=== PATIENT | male | born 1945 | race Caucasian/White ===

== ENCOUNTER 2017-10-23 17:44 | Inpatient (IN) | payer MEDICARE ==
[~2017-10-23] VITALS: Ht 188 cm; Wt 90.0 kg
[~2017-10-23 17:44] MED LIST: ACET-2119 PO; AMLO5TAB16 PO; FINA5TAB11 PO; GLIM2TAB2 PO; INSU100V9 SQ; LACT10SO32 PO; OMEP-84 PO; POTA10TA10 PO; RIFA550T PO; SAXA5TAB PO
[2017-10-23 18:26] LABS: BASOPHILS % (AUTO) 0 % (0-1); EOSINOPHILS # (AUTO) 0.1 X10'3 (0-0.9); HEMATOCRIT 34.7 % (42.0-52.0); HEMOGLOBIN 11.9 g/dl (14.0-17.9); LYMPHOCYTES # (AUTO) 0.5 X10'3 (1.1-4.8); LYMPHOCYTES % (AUTO) 5.1 % (21-51); MEAN CORPUSCULAR HEMOGLOBIN 32.2 PG (27.0-31.0); MEAN CORPUSCULAR HGB CONC 34.2 % (33.0-36.5); MEAN CORPUSCULAR VOLUME 94.2 FL (78-98); MEAN PLATELET VOLUME 7.3 FL (7.4-10.4); MONOCYTES # (AUTO) 0.7 X10'3 (0-0.9); MONOCYTES % (AUTO) 7.2 % (2-12); NEUTROPHILS # (AUTO) 8.6 X10'3 (1.8-7.7); NEUTROPHILS % (AUTO) 86.7 % (42-75); PLATELET COUNT 119 X10'3 (140-440); RED BLOOD COUNT 3.69 X10'6 (4.70-6.10); RED CELL DISTRIBUTION WIDTH 18.6 % (11.5-14.5); WHITE BLOOD COUNT 9.9 X10'3 (4.5-11.0)
[2017-10-23 18:27] LABS: CLARITY,URINE CLEAR (Clear); COLOR,URINE YELLOW (Yellow); GLUCOSE, URINE >=1000 mg/dl (Neg); KETONES,URINE TRACE mg/dl (Neg); LEUKOCYTE ESTERASE ,URINE NEGATIVE (Neg); NITRITES, URINE NEGATIVE (Neg); OCCULT BLOOD,URINE LARGE (Neg); PROTEIN,URINE NEGATIVE (Neg); UROBILINOGEN,URINE 0.2 E.U/dL (0.2-1.0)
[2017-10-23 18:38] LABS: UA COLLECTION TYPE FOLEY CATH
[2017-10-23 18:39] LABS: BACTERIA,URINE FEW /HPF (Neg); RBC,URINE 0-2 /HPF (0-2); SQUAMOUS EPITHELIAL CELL,UR FEW /LPF (FEW); WBC,URINE NONE SEEN /HPF (0-4)
[2017-10-23 18:41] LABS: INR 1.2 INR; PARTIAL THROMBOPLASTIN TIME 29 SECONDS (22-32); PROTHROMBIN TIME 12.2 SECONDS (9.0-12.0)
[2017-10-23 19:10] LABS: ALANINE AMINOTRANSFERASE 47 U/L (12-78); ALBUMIN/GLOBULIN RATIO 0.4 (1.1-1.5); ANION GAP 19 (8-16); ASPARTATE AMINO TRANSFERASE 209 U/L (10-37); BILIRUBIN,TOTAL 2.9 MG/DL (0.1-1.0); BLOOD UREA NITROGEN 29 MG/DL (7-18); BUN/CREATININE RATIO 15.3 (5.4-32.0); CALCIUM 8.6 MG/DL (8.5-10.1); CHLORIDE 106 MMOL/L (99-107); GLUCOSE 379 MG/DL (70-104); MAGNESIUM 2.1 MG/DL (1.5-2.4); POTASSIUM 5.4 MMOL/L (3.5-5.1); SODIUM 140 MMOL/L (135-145); TOTAL CARBON DIOXIDE 15.4 MMOL/L (24-32); TROPONIN I 0.13 NG/ML (0.0-0.05); eGFR 35 ML/MIN
[2017-10-23 19:11] LABS: LACTIC SEPSIS 11.8 MMOL/L (0.4-2.0)
[2017-10-23] MEDS ORDERED: normal saline 1000ml 1,000 ML IVB ONE (19:23)
[2017-10-23] MEDS ORDERED: vancomycin/NS 1 GM ADD-VANTAGE 250 ML IV STA (19:24)
[2017-10-23] MEDS ORDERED: piperacillin-tazo 2.25gm/50ml 50 ML IV STA (19:24)
[2017-10-23 19:30] LABS: ALKALINE PHOSPHATASE 155 IU/L (46-116)
[2017-10-23 19:44] LABS: CREATINE KINASE 11669 U/L (39-308)
[2017-10-23 19:51] LABS: ABG BASE EXCESS -10.9 mmol/L (-2.0-3.0); ABG HCO3 12.7 mmol/L (22.0-26.0); ABG OXYGEN SATURATION 96.8 % (95-98); ABG PCO2 (T) 22.2 mmHg (35.0-48.0); ABG PH (T) 7.373 (7.350-7.450); ABG PO2 (T) 98.2 mmHg (83-108); ALLEN'S TEST Positive; FCOHb 0.5 % (0.5-1.5); FMetHb 0.2 % (0.3-1.12); FO2Hb 96.1 % (94-100); PATIENT TEMPERATURE 36.2; TOTAL HEMOGLOBIN 11.5 G/dl (14.0-18.0)
[2017-10-23] MEDS ORDERED: vancomycin/NS 1 GM ADD-VANTAGE 250 ML IV ONE ×2 (20:10→20:15)
[2017-10-23] MEDS ORDERED: lactulose 20gm/30ml cup PO ONE (21:10)
[2017-10-23] MEDS ORDERED: diltiazem 5mg/ml 5ml inj. IV ONE (21:30)
[2017-10-23] MEDS ORDERED: SODIUM BICARBONATE IV SCH (23:10)
[2017-10-23] MEDS ORDERED: DEXTROSE 5% IV SCH (23:10)
[2017-10-23] MEDS ORDERED: WATER IV SCH (23:10)
[2017-10-23] MEDS ORDERED: sodium bicarbonate (8.4%) inj. 50 MEQ in dextrose 5%-water 1,000 ML IV SCH (23:10)
[2017-10-23] MEDS ORDERED: normal saline 1000ml 1,000 ML IV SCH (23:51)
[2017-10-23] MEDS ORDERED: mag hydrox/Alum hydrox/simeth 30ml oral suspension PO PRN (23:55)
[2017-10-23] MEDS ORDERED: acetaminophen 325mg tablet PO PRN (23:55)
[2017-10-23] MEDS ORDERED: ondansetron/PF 4mg/2ml inj IV PRN (23:55)
[2017-10-23] MEDS ORDERED: potassium Cl 40MEQ/NS 500ml 500 ML IV PRN ×2 (23:55)
[2017-10-23] MEDS ORDERED: magnesium 4gm in 100ml NS 100 ML IV PRN (23:55)
[2017-10-23] MEDS ORDERED: magnesium 2GM in 50ml NS 50 ML IV PRN (23:55)
[2017-10-23] MEDS ORDERED: magnesium hydroxide 30ml (MOM) UD suspension PO PRN (23:55)
[2017-10-23] MEDS ORDERED: potassium Cl 20 mEq SR tablet PO PRN ×2 (23:55)
[2017-10-23] MEDS ORDERED: magnesium Cl slow-release 64mg tablet PO PRN (23:55)
[2017-10-24] MEDS ORDERED: sodium bicarbonate (8.4%) inj. 50 MEQ in normal saline 1000ml 1,000 ML IV SCH (00:20)
[2017-10-24] MEDS ORDERED: sodium bicarbonate (8.4%) 1 mEq/ml syringe ONE (00:27)
[2017-10-24 01:30] VITALS: BP 109/51
[2017-10-24 05:41] LABS: BASOPHILS % (AUTO) 0 % (0-1); EOSINOPHILS # (AUTO) 0.1 X10'3 (0-0.9); HEMATOCRIT 34.3 % (42.0-52.0); HEMOGLOBIN 11.8 g/dl (14.0-17.9); LYMPHOCYTES # (AUTO) 0.6 X10'3 (1.1-4.8); MEAN CORPUSCULAR HEMOGLOBIN 32.5 PG (27.0-31.0); MEAN CORPUSCULAR HGB CONC 34.5 % (33.0-36.5); MEAN CORPUSCULAR VOLUME 94.2 FL (78-98); MEAN PLATELET VOLUME 7.4 FL (7.4-10.4); MONOCYTES # (AUTO) 0.6 X10'3 (0-0.9); MONOCYTES % (AUTO) 6.1 % (2-12); NEUTROPHILS % (AUTO) 86.9 % (42-75); PLATELET COUNT 95 X10'3 (140-440); RED BLOOD COUNT 3.65 X10'6 (4.70-6.10); RED CELL DISTRIBUTION WIDTH 19.5 % (11.5-14.5); WHITE BLOOD COUNT 10.4 X10'3 (4.5-11.0)
[2017-10-24 06:00] LABS: LACTIC SEPSIS 2.5 MMOL/L (0.4-2.0)
[2017-10-24 06:05] LABS: ALANINE AMINOTRANSFERASE 136 U/L (12-78); ALBUMIN 1.6 G/DL (3.4-5.0); ALBUMIN/GLOBULIN RATIO 0.4 (1.1-1.5); ALKALINE PHOSPHATASE 131 IU/L (46-116); ANION GAP 10 (8-16); ASPARTATE AMINO TRANSFERASE 851 U/L (10-37); BILIRUBIN,TOTAL 2.7 MG/DL (0.1-1.0); BLOOD UREA NITROGEN 34 MG/DL (7-18); CALCIUM 7.6 MG/DL (8.5-10.1); CHLORIDE 111 MMOL/L (99-107); GLUCOSE 260 MG/DL (70-104); MAGNESIUM 1.9 MG/DL (1.5-2.4); POTASSIUM 4.9 MMOL/L (3.5-5.1); SODIUM 142 MMOL/L (135-145); TOTAL CARBON DIOXIDE 20.9 MMOL/L (24-32); eGFR 40 ML/MIN
[2017-10-24 06:09] LABS: HEMOGLOBIN A1C 6.9 % (4.5-6.2)
[2017-10-24 06:49] LABS: CREATINE KINASE 40292 U/L (39-308)
[2017-10-24 07:00] VITALS: BP 119/45
[2017-10-24] MEDS ORDERED: lactobacillus rhamnosus 10,000 MMU CELLS/CAPSULE PO SCH (07:30)
[2017-10-24] MEDS: pantoprazole 40mg Tablet.DR PO SCH ×2 (07:30→17:30)
[2017-10-24] MEDS: amLODIPine 5mg tablet PO SCH (08:00)
[2017-10-24] MEDS: heparin, porcine 5000 units/ml vial SQ SCH ×2 (08:00→20:00)
[2017-10-24] MEDS: K and/or MAG REPLACEMENT MC SCH (08:00)
[2017-10-24] MEDS: lactulose 20gm/30ml cup PO SCH ×7 (08:00→21:00)
[2017-10-24] MEDS ORDERED: vancomycin/NS 1 GM ADD-VANTAGE 250 ML IV SCH (08:00)
[2017-10-24] MEDS: finasteride 5mg tablet PO SCH (08:00)
[2017-10-24] MEDS ORDERED: lactulose 20gm/30ml cup PO SCH (08:00)
[2017-10-24] MEDS: rifaximin 550mg tablet PO SCH ×2 (08:00→20:00)
[2017-10-24 08:08] LABS: ACETAMINOPHEN < 2.0 UG/ML (10-30)
[2017-10-24] MEDS: piperacillin/tazo 4.5gm/100ml 100 ML IV SCH ×3 (09:06→19:28)
[2017-10-24] MEDS: sodium bicarbonate (8.4%) inj. 150 MEQ in dextrose 5%-water 1,000 ML IV SCH ×2 (09:07→18:35)
[2017-10-24 11:00] VITALS: BP 137/61
[2017-10-24 14:03] LABS: CREATINE KINASE 47538 U/L (39-308)
[2017-10-24] MEDS ORDERED: lactulose 20gm/30ml cup PO ONE (14:30)
[2017-10-24 15:00] VITALS: BP 107/53
[2017-10-24 16:28] LABS: CREATINE KINASE 38839 U/L (39-308)
[2017-10-24 18:00] VITALS: BP 123/67
[2017-10-24] MEDS ORDERED: dextrose 50%-water 50ml dispensing syringe IV PRN ×2 (18:55)
[2017-10-24] MEDS ORDERED: dextrose ORAL solution 15 GM/59 ML bottle PO PRN ×2 (18:55)
[2017-10-24] MEDS ORDERED: MESSAGE TO PHARMACY PO ONE (18:55)
[2017-10-24] MEDS ORDERED: glucagon, human recombinant 1mg kit SUBCUT PRN (18:55)
[2017-10-24] MEDS: insulin Lispro (HumaLOG) vial - multi-dose SQ SCH ×2 (19:47→23:07)
[2017-10-24] MEDS ORDERED: vancomycin inj 1,250 MG in normal saline 250ml IV soln 250 ML IV SCH (20:00)
[2017-10-24 22:00] VITALS: BP 135/57
[2017-10-24] MEDS: insulin glargine (Lantus) pen - multi-dose SQ SCH (22:46)
[2017-10-24] MEDS ORDERED: normal saline 1000ml 1,000 ML IV SCH (23:55)
[2017-10-25 02:00] VITALS: BP 104/43
[2017-10-25] MEDS: piperacillin/tazo 4.5gm/100ml 100 ML IV SCH (02:04)
[2017-10-25] MEDS: insulin Lispro (HumaLOG) vial - multi-dose SQ SCH ×2 (04:34→14:11)
[2017-10-25 05:55] LABS: BASOPHILS % (AUTO) 0 % (0-1); EOSINOPHILS # (AUTO) 0.1 X10'3 (0-0.9); HEMATOCRIT 32.5 % (42.0-52.0); HEMOGLOBIN 11.1 g/dl (14.0-17.9); LYMPHOCYTES # (AUTO) 0.6 X10'3 (1.1-4.8); LYMPHOCYTES % (AUTO) 4.9 % (21-51); MEAN CORPUSCULAR VOLUME 94.1 FL (78-98); MEAN PLATELET VOLUME 7.5 FL (7.4-10.4); MONOCYTES % (AUTO) 7.5 % (2-12); NEUTROPHILS # (AUTO) 11.3 X10'3 (1.8-7.7); NEUTROPHILS % (AUTO) 86.6 % (42-75); PLATELET COUNT 102 X10'3 (140-440); RED BLOOD COUNT 3.46 X10'6 (4.70-6.10); RED CELL DISTRIBUTION WIDTH 19.2 % (11.5-14.5)
[2017-10-25 06:37] LABS: ALANINE AMINOTRANSFERASE 166 U/L (12-78); ALBUMIN 1.4 G/DL (3.4-5.0); ALBUMIN/GLOBULIN RATIO 0.3 (1.1-1.5); ALKALINE PHOSPHATASE 118 IU/L (46-116); ANION GAP 8 (8-16); ASPARTATE AMINO TRANSFERASE 661 U/L (10-37); BILIRUBIN,TOTAL 3.3 MG/DL (0.1-1.0); BLOOD UREA NITROGEN 58 MG/DL (7-18); BUN/CREATININE RATIO 15.3 (5.4-32.0); CALCIUM 7.5 MG/DL (8.5-10.1); CHLORIDE 108 MMOL/L (99-107); GLUCOSE 369 MG/DL (70-104); MAGNESIUM 2.3 MG/DL (1.5-2.4); POTASSIUM 3.8 MMOL/L (3.5-5.1); SODIUM 140 MMOL/L (135-145); TOTAL CARBON DIOXIDE 23.8 MMOL/L (24-32); TOTAL PROTEIN 5.5 G/DL (6.4-8.2); eGFR 16 ML/MIN
[2017-10-25 07:00] VITALS: BP 112/76
[2017-10-25] MEDS: pantoprazole 40mg Tablet.DR PO SCH (07:30)
[2017-10-25] MEDS ORDERED: LACTOBACILLUS RHAMNOSUS GG 15 billion unit sprinkle caps PO SCH (07:30)
[2017-10-25 07:42] LABS: CREATINE KINASE 21080 U/L (39-308)
[2017-10-25] MEDS: amLODIPine 5mg tablet PO SCH (08:00)
[2017-10-25] MEDS: rifaximin 550mg tablet PO SCH ×2 (08:00→20:00)
[2017-10-25] MEDS: heparin, porcine 5000 units/ml vial SQ SCH (08:00)
[2017-10-25] MEDS: K and/or MAG REPLACEMENT MC SCH (08:00)
[2017-10-25] MEDS: finasteride 5mg tablet PO SCH (08:00)
[2017-10-25] MEDS ORDERED: furosemide 20 MG/2 ML vial IV SCH (08:40)
[2017-10-25] MEDS ORDERED: sodium bicarbonate inj. 44.6 MEQ, Potassium Cl inj 20 MEQ in sodium chloride 0.45% 990.... IV SCH (08:40)
[2017-10-25] MEDS: lactulose 20gm/30ml cup PO SCH ×4 (09:08→21:00)
[2017-10-25] MEDS ORDERED: potassium Cl oral solution 20 MEQ/15 ML PO PRN ×2 (10:57→10:58)
[2017-10-25 11:00] VITALS: BP 105/65
[2017-10-25] MEDS: sodium bicarbonate (8.4%) inj. 50 MEQ, Potassium Cl inj 20 MEQ in sodium chloride 0.45%... IV SCH ×2 (11:01→19:17)
[2017-10-25] MEDS ORDERED: pantoprazole 40MG/NS 100ML BAG 100 ML IV SCH (12:00)
[2017-10-25 12:45] LABS: CREATINE KINASE 13065 U/L (39-308)
[2017-10-25 14:38] LABS: BASOPHILS % (AUTO) 0.2 % (0-1); EOSINOPHILS # (AUTO) 0.2 X10'3 (0-0.9); EOSINOPHILS % (AUTO) 1.5 % (0-6); HEMATOCRIT 34.3 % (42.0-52.0); HEMOGLOBIN 11.7 g/dl (14.0-17.9); LYMPHOCYTES # (AUTO) 0.6 X10'3 (1.1-4.8); LYMPHOCYTES % (AUTO) 4.6 % (21-51); MEAN CORPUSCULAR HEMOGLOBIN 32.2 PG (27.0-31.0); MEAN CORPUSCULAR HGB CONC 34.2 % (33.0-36.5); MEAN CORPUSCULAR VOLUME 94.2 FL (78-98); MEAN PLATELET VOLUME 7.8 FL (7.4-10.4); MONOCYTES # (AUTO) 1.1 X10'3 (0-0.9); MONOCYTES % (AUTO) 7.9 % (2-12); NEUTROPHILS # (AUTO) 11.9 X10'3 (1.8-7.7); NEUTROPHILS % (AUTO) 85.8 % (42-75); PLATELET COUNT 105 X10'3 (140-440); RED BLOOD COUNT 3.63 X10'6 (4.70-6.10); RED CELL DISTRIBUTION WIDTH 19.8 % (11.5-14.5); WHITE BLOOD COUNT 13.9 X10'3 (4.5-11.0)
[2017-10-25 15:00] VITALS: BP 112/57
[2017-10-25 16:56] LABS: PLATELET ESTIMATE DECREASED
[2017-10-25 16:58] LABS: POLYCHROMASIA FEW
[2017-10-25 16:59] LABS: ANISOCYTOSIS 2+; MICROCYTOSIS 1+
[2017-10-25 17:00] LABS: SCHISTOCYTES FEW
[2017-10-25 19:00] VITALS: BP 131/49
[2017-10-25] MEDS ORDERED: LORazepam 2 mg/ml vial IV PRN (19:35)
[2017-10-25] MEDS ORDERED: morphine 10mg/ml inj. IV PRN (19:35)
[2017-10-25] MEDS: insulin glargine (Lantus) pen - multi-dose SQ SCH (21:00)
[2017-10-26 06:30] VITALS: BP 118/50
[2017-10-26] MEDS ORDERED: pantoprazole 40 MG vial IV SCH (08:00)
[2017-10-26] MEDS: morphine 10mg/0.5ml (conc. morphine) oral syringe PO PRN ×2 (10:40→12:42)
[2017-10-26 18:00] VITALS: BP 97/40
[2017-10-26] MEDS ORDERED: SODIUM BICARBONATE IV SCH (18:05)
[2017-10-26] MEDS ORDERED: potassium Cl 20 mEq SR tablet PO PRN ×2 (18:05)
[2017-10-26] MEDS ORDERED: magnesium Cl slow-release 64mg tablet PO PRN (18:05)
[2017-10-26] MEDS ORDERED: POTASSIUM CL IV SCH (18:05)
[2017-10-26] MEDS ORDERED: [UNRECOGNIZED DRUG - OTHER] IV SCH (18:05)
[2017-10-26] MEDS ORDERED: magnesium 4gm in 100ml NS 100 ML IV PRN (18:05)
[2017-10-26] MEDS ORDERED: potassium Cl 40MEQ/NS 500ml 500 ML IV PRN ×2 (18:05)
[2017-10-26] MEDS ORDERED: magnesium 2GM in 50ml NS 50 ML IV PRN (18:05)
[2017-10-26 18:43] LABS: BASOPHILS % (AUTO) 0.1 % (0-1); EOSINOPHILS # (AUTO) 0.2 X10'3 (0-0.9); EOSINOPHILS % (AUTO) 2.8 % (0-6); HEMATOCRIT 22.8 % (42.0-52.0); HEMOGLOBIN 7.9 g/dl (14.0-17.9); LYMPHOCYTES # (AUTO) 0.7 X10'3 (1.1-4.8); LYMPHOCYTES % (AUTO) 9.6 % (21-51); MEAN CORPUSCULAR HEMOGLOBIN 32.5 PG (27.0-31.0); MEAN CORPUSCULAR HGB CONC 34.7 % (33.0-36.5); MEAN CORPUSCULAR VOLUME 93.6 FL (78-98); MEAN PLATELET VOLUME 7.1 FL (7.4-10.4); MONOCYTES # (AUTO) 0.6 X10'3 (0-0.9); MONOCYTES % (AUTO) 8.5 % (2-12); NEUTROPHILS # (AUTO) 5.8 X10'3 (1.8-7.7); PLATELET COUNT 67 X10'3 (140-440); RED BLOOD COUNT 2.44 X10'6 (4.70-6.10); RED CELL DISTRIBUTION WIDTH 19.3 % (11.5-14.5); WHITE BLOOD COUNT 7.3 X10'3 (4.5-11.0)
[2017-10-26 19:06] LABS: ALANINE AMINOTRANSFERASE 166 U/L (12-78); ALBUMIN 1.2 G/DL (3.4-5.0); ALBUMIN/GLOBULIN RATIO 0.4 (1.1-1.5); ALKALINE PHOSPHATASE 95 IU/L (46-116); ANION GAP 10 (8-16); ASPARTATE AMINO TRANSFERASE 494 U/L (10-37); BILIRUBIN,TOTAL 2.8 MG/DL (0.1-1.0); BLOOD UREA NITROGEN 88 MG/DL (7-18); BUN/CREATININE RATIO 14.7 (5.4-32.0); CALCIUM 6.9 MG/DL (8.5-10.1); CHLORIDE 103 MMOL/L (99-107); GLUCOSE 349 MG/DL (70-104); POTASSIUM 3.9 MMOL/L (3.5-5.1); SODIUM 137 MMOL/L (135-145); TOTAL CARBON DIOXIDE 23.6 MMOL/L (24-32); TOTAL PROTEIN 4.6 G/DL (6.4-8.2); eGFR 9 ML/MIN
[2017-10-26 19:17] LABS: CREATINE KINASE 12325 U/L (39-308)
[2017-10-26] MEDS ORDERED: glucagon, human recombinant 1mg kit SUBCUT PRN (19:35)
[2017-10-26] MEDS ORDERED: dextrose 50%-water 50ml dispensing syringe IV PRN ×2 (19:35)
[2017-10-26] MEDS ORDERED: dextrose ORAL solution 15 GM/59 ML bottle PO PRN ×2 (19:35)
[2017-10-26] MEDS ORDERED: MESSAGE TO PHARMACY PO ONE (19:35)
[2017-10-26] MEDS: SODIUM BICARBONATE IV SCH (19:38)
[2017-10-26] MEDS: POTASSIUM CL IV SCH (19:38)
[2017-10-26] MEDS: [UNRECOGNIZED DRUG - OTHER] IV SCH (19:38)
[2017-10-26] MEDS: insulin glargine (Lantus) pen - multi-dose SQ SCH (21:00)
[2017-10-26] MEDS: pantoprazole 40MG/NS 100ML BAG 100 ML IV SCH (21:27)
[2017-10-26 22:00] VITALS: BP 103/37
[2017-10-27] VITALS (16 sets, daily range): BP systolic 95–110; BP diastolic 39–64
[2017-10-27] MEDS ORDERED: furosemide 20 MG/2 ML vial IV ONE (00:20)
[2017-10-27] MEDS: pantoprazole 40MG/NS 100ML BAG 100 ML IV SCH ×5 (02:19→21:00)
[2017-10-27] MEDS: [UNRECOGNIZED DRUG - OTHER] IV SCH ×2 (04:50→14:28)
[2017-10-27] MEDS: SODIUM BICARBONATE IV SCH ×2 (04:50→14:28)
[2017-10-27] MEDS: POTASSIUM CL IV SCH ×2 (04:50→14:28)
[2017-10-27] MEDS ORDERED: albumin (human) 25% 100ml IV 100 ML IV PRN (08:40)
[2017-10-27] MEDS ORDERED: epoetin 20,000 units/ml inj IV ONE (08:40)
[2017-10-27] MEDS ORDERED: heparin 1,000 units/ml 10ml inj HE ONE ×2 (08:45)
[2017-10-27] MEDS ORDERED: MANNITOL 20% IV ONE (09:10)
[2017-10-27 10:06] LABS: BASOPHILS % (AUTO) 0.2 % (0-1); EOSINOPHILS # (AUTO) 0.2 X10'3 (0-0.9); EOSINOPHILS % (AUTO) 1.9 % (0-6); HEMATOCRIT 28.5 % (42.0-52.0); HEMOGLOBIN 10.1 g/dl (14.0-17.9); LYMPHOCYTES # (AUTO) 0.6 X10'3 (1.1-4.8); LYMPHOCYTES % (AUTO) 5.4 % (21-51); MEAN CORPUSCULAR HEMOGLOBIN 33.2 PG (27.0-31.0); MEAN CORPUSCULAR HGB CONC 35.4 % (33.0-36.5); MEAN CORPUSCULAR VOLUME 93.6 FL (78-98); MEAN PLATELET VOLUME 7.5 FL (7.4-10.4); MONOCYTES % (AUTO) 8.7 % (2-12); NEUTROPHILS # (AUTO) 9.4 X10'3 (1.8-7.7); NEUTROPHILS % (AUTO) 83.8 % (42-75); PLATELET COUNT 90 X10'3 (140-440); RED BLOOD COUNT 3.05 X10'6 (4.70-6.10); RED CELL DISTRIBUTION WIDTH 18.1 % (11.5-14.5); WHITE BLOOD COUNT 11.2 X10'3 (4.5-11.0)
[2017-10-27 10:31] LABS: ALANINE AMINOTRANSFERASE 188 U/L (12-78); ALBUMIN 1.4 G/DL (3.4-5.0); ALKALINE PHOSPHATASE 113 IU/L (46-116); ANION GAP 14 (8-16); ASPARTATE AMINO TRANSFERASE 437 U/L (10-37); BILIRUBIN,TOTAL 4.4 MG/DL (0.1-1.0); BLOOD UREA NITROGEN 91 MG/DL (7-18); BUN/CREATININE RATIO 14.4 (5.4-32.0); CALCIUM 7.2 MG/DL (8.5-10.1); CHLORIDE 101 MMOL/L (99-107); GLUCOSE 298 MG/DL (70-104); MAGNESIUM 2.1 MG/DL (1.5-2.4); POTASSIUM 4.2 MMOL/L (3.5-5.1); SODIUM 135 MMOL/L (135-145); TOTAL CARBON DIOXIDE 20.5 MMOL/L (24-32); eGFR 9 ML/MIN
[2017-10-27 10:35] LABS: ALBUMIN/GLOBULIN RATIO 0.4 (1.1-1.5); PHOSPHORUS 6.6 MG/DL (2.3-4.5); TOTAL PROTEIN 5.3 G/DL (6.4-8.2)
[2017-10-27 10:50] LABS: CREATINE KINASE 9009 U/L (39-308)
[2017-10-27] MEDS ORDERED: fentaNYL/PF 50MCG/1 ML 2ML syringe ONE (12:09)
[2017-10-27] MEDS ORDERED: MIDAZolam 1mg/ml 10ml vial ONE (12:09)
[2017-10-27] MEDS ORDERED: LIDOcaine Viscous 15ml cup ONE (12:10)
[2017-10-27] MEDS ORDERED: VANCOMYCIN LEVEL IV NR (19:30)
[2017-10-27] MEDS: lactulose 20gm/30ml cup PO SCH (20:28)
[2017-10-27] MEDS ORDERED: diphenhydrAMINE 25mg capsule PO PRN (20:30)
[2017-10-27] MEDS ORDERED: diphenhydrAMINE 25mg capsule PO ONE (20:30)
[2017-10-27] MEDS: insulin glargine (Lantus) pen - multi-dose SQ SCH (22:27)
[2017-10-28] MEDS: pantoprazole 40MG/NS 100ML BAG 100 ML IV SCH ×5 (01:00→21:51)
[2017-10-28] MEDS: SODIUM BICARBONATE IV SCH ×2 (01:50→04:18)
[2017-10-28] MEDS: POTASSIUM CL IV SCH ×2 (01:50→04:18)
[2017-10-28] MEDS: [UNRECOGNIZED DRUG - OTHER] IV SCH ×2 (01:50→04:18)
[2017-10-28 03:21] VITALS: BP 111/56
[2017-10-28 06:35] VITALS: BP_SYST 102; BP_SYST 99; BP_DIAS 43; BP_DIAS 48
[2017-10-28 06:50] LABS: ANION GAP 13 (8-16); BLOOD UREA NITROGEN 105 MG/DL (7-18); BUN/CREATININE RATIO 15.7 (5.4-32.0); CALCIUM 6.9 MG/DL (8.5-10.1); CHLORIDE 100 MMOL/L (99-107); GLUCOSE 232 MG/DL (70-104); MAGNESIUM 2.2 MG/DL (1.5-2.4); POTASSIUM 3.8 MMOL/L (3.5-5.1); SODIUM 135 MMOL/L (135-145); TOTAL CARBON DIOXIDE 21.7 MMOL/L (24-32); eGFR 8 ML/MIN
[2017-10-28 06:51] LABS: ALANINE AMINOTRANSFERASE 168 U/L (12-78); ALBUMIN 1.3 G/DL (3.4-5.0); ALKALINE PHOSPHATASE 136 IU/L (46-116); ASPARTATE AMINO TRANSFERASE 362 U/L (10-37); BILIRUBIN,TOTAL 4.3 MG/DL (0.1-1.0)
[2017-10-28 06:55] LABS: BASOPHILS % (AUTO) 0.1 % (0-1); EOSINOPHILS # (AUTO) 0.2 X10'3 (0-0.9); EOSINOPHILS % (AUTO) 3.5 % (0-6); HEMATOCRIT 22.6 % (42.0-52.0); HEMOGLOBIN 8.1 g/dl (14.0-17.9); LYMPHOCYTES # (AUTO) 0.4 X10'3 (1.1-4.8); LYMPHOCYTES % (AUTO) 9.7 % (21-51); MEAN CORPUSCULAR HEMOGLOBIN 32.9 PG (27.0-31.0); MEAN CORPUSCULAR HGB CONC 35.6 % (33.0-36.5); MEAN CORPUSCULAR VOLUME 92.3 FL (78-98); MEAN PLATELET VOLUME 7.6 FL (7.4-10.4); MONOCYTES # (AUTO) 0.5 X10'3 (0-0.9); MONOCYTES % (AUTO) 10.5 % (2-12); NEUTROPHILS # (AUTO) 3.3 X10'3 (1.8-7.7); NEUTROPHILS % (AUTO) 76.2 % (42-75); RED BLOOD COUNT 2.45 X10'6 (4.70-6.10); WHITE BLOOD COUNT 4.3 X10'3 (4.5-11.0)
[2017-10-28 06:59] LABS: ALBUMIN/GLOBULIN RATIO 0.4 (1.1-1.5); PHOSPHORUS 6.8 MG/DL (2.3-4.5); TOTAL PROTEIN 4.5 G/DL (6.4-8.2)
[2017-10-28 07:13] LABS: PLATELET COUNT 47 X10'3 (140-440)
[2017-10-28] MEDS ORDERED: heparin 1,000unit/ml 10ml vial 10 ML IV ONE (08:37)
[2017-10-28] MEDS ORDERED: epoetin 20,000 units/ml inj IV ONE (08:40)
[2017-10-28] MEDS ORDERED: albumin (human) 25% 100ml IV 100 ML IV PRN (08:40)
[2017-10-28] MEDS ORDERED: heparin 1,000 units/ml 10ml inj IV ONE (08:40)
[2017-10-28] MEDS ORDERED: heparin 1,000 units/ml 10ml inj HE ONE ×2 (08:45)
[2017-10-28 08:51] LABS: BASOPHILS % (AUTO) 0.1 % (0-1); EOSINOPHILS # (AUTO) 0.2 X10'3 (0-0.9); EOSINOPHILS % (AUTO) 3.3 % (0-6); HEMATOCRIT 22.9 % (42.0-52.0); HEMOGLOBIN 8.4 g/dl (14.0-17.9); LYMPHOCYTES # (AUTO) 0.6 X10'3 (1.1-4.8); LYMPHOCYTES % (AUTO) 9.2 % (21-51); MEAN CORPUSCULAR HEMOGLOBIN 33.4 PG (27.0-31.0); MEAN CORPUSCULAR HGB CONC 36.7 % (33.0-36.5); MEAN CORPUSCULAR VOLUME 91.1 FL (78-98); MEAN PLATELET VOLUME 7.3 FL (7.4-10.4); MONOCYTES # (AUTO) 0.6 X10'3 (0-0.9); MONOCYTES % (AUTO) 9.1 % (2-12); NEUTROPHILS # (AUTO) 4.9 X10'3 (1.8-7.7); NEUTROPHILS % (AUTO) 78.3 % (42-75); PLATELET COUNT 63 X10'3 (140-440); RED BLOOD COUNT 2.51 X10'6 (4.70-6.10); RED CELL DISTRIBUTION WIDTH 19.5 % (11.5-14.5); WHITE BLOOD COUNT 6.3 X10'3 (4.5-11.0)
[2017-10-28 09:05] LABS: CREATINE KINASE 6798 U/L (39-308)
[2017-10-28] MEDS ORDERED: mannitol 20% IV solution 250ml 62.5 ML IV ONE (09:24)
[2017-10-28] MEDS: lactulose 20gm/30ml cup PO SCH ×2 (10:23→21:51)
[2017-10-28] MEDS ORDERED: LIDOcaine 1%/PF (10mg/ml) 5ml vial ONE (12:52)
[2017-10-28] MEDS ORDERED: midazolam 2 mg/2 ml injection IV PRN (13:35)
[2017-10-28] MEDS ORDERED: fentaNYL/PF 50MCG/1 ML 2ML syringe ONE (13:35)
[2017-10-28] MEDS ORDERED: heparin 1,000 units/ml 10ml inj ICATH ONE (13:35)
[2017-10-28] MEDS ORDERED: LIDOcaine 1%/PF (10mg/ml) 5ml vial SQ ONE (13:35)
[2017-10-28] MEDS ORDERED: heparin 1,000unit/ml 10ml vial 10 ML ONE (13:35)
[2017-10-28] MEDS ORDERED: fentaNYL/PF 50MCG/1 ML 2ML syringe IV PRN (13:35)
[2017-10-28] MEDS ORDERED: midazolam 2 mg/2 ml injection ONE (13:35)
[2017-10-28 14:50] VITALS: BP 97/47
[2017-10-28 18:00] VITALS: BP 86/41
[2017-10-28 22:00] VITALS: BP 85/39
[2017-10-28] MEDS ORDERED: albumin (human) 25% 100 ML IV solution IV ONE (22:20)
[2017-10-28] MEDS: insulin glargine (Lantus) pen - multi-dose SQ SCH (22:30)
[2017-10-28 22:50] VITALS: BP 107/45
[2017-10-29] VITALS (28 sets, daily range): BP systolic 93–129; BP diastolic 45–67
[2017-10-29] MEDS: pantoprazole 40MG/NS 100ML BAG 100 ML IV SCH ×5 (02:05→21:32)
[2017-10-29 06:26] LABS: MEAN CORPUSCULAR HEMOGLOBIN 33.4 PG (27.0-31.0); MEAN CORPUSCULAR HGB CONC 36.4 % (33.0-36.5); MEAN CORPUSCULAR VOLUME 91.8 FL (78-98); RED BLOOD COUNT 1.95 X10'6 (4.70-6.10); RED CELL DISTRIBUTION WIDTH 20.2 % (11.5-14.5); WHITE BLOOD COUNT 2.1 X10'3 (4.5-11.0)
[2017-10-29 06:53] LABS: ALANINE AMINOTRANSFERASE 127 U/L (12-78); ALBUMIN 2.1 G/DL (3.4-5.0); ALKALINE PHOSPHATASE 124 IU/L (46-116); ANION GAP 12 (8-16); ASPARTATE AMINO TRANSFERASE 235 U/L (10-37); BILIRUBIN,TOTAL 5.6 MG/DL (0.1-1.0); BLOOD UREA NITROGEN 70 MG/DL (7-18); BUN/CREATININE RATIO 13.5 (5.4-32.0); CALCIUM 6.9 MG/DL (8.5-10.1); CHLORIDE 102 MMOL/L (99-107); GLUCOSE 158 MG/DL (70-104); MAGNESIUM 1.9 MG/DL (1.5-2.4); POTASSIUM 3.5 MMOL/L (3.5-5.1); SODIUM 138 MMOL/L (135-145); TOTAL CARBON DIOXIDE 23.9 MMOL/L (24-32); eGFR 11 ML/MIN
[2017-10-29 07:07] LABS: ALBUMIN/GLOBULIN RATIO 0.8 (1.1-1.5); PHOSPHORUS 4.8 MG/DL (2.3-4.5); TOTAL PROTEIN 4.6 G/DL (6.4-8.2)
[2017-10-29 07:44] LABS: HEMOGLOBIN 6.5 g/dl (14.0-17.9)
[2017-10-29 07:45] LABS: HEMATOCRIT 17.9 % (42.0-52.0)
[2017-10-29 07:46] LABS: PLATELET COUNT 31 X10'3 (140-440)
[2017-10-29 07:52] LABS: ANISOCYTOSIS 2+; PLATELET ESTIMATE DECREASED; TOTAL CELLS COUNTED 100
[2017-10-29 07:53] LABS: POIKILOCYTOSIS FEW; POLYCHROMASIA 1+
[2017-10-29] MEDS ORDERED: epoetin 20,000 units/ml inj IV ONE (08:35)
[2017-10-29] MEDS ORDERED: albumin (human) 25% 100ml IV 100 ML IV PRN (08:35)
[2017-10-29] MEDS ORDERED: heparin 1,000 units/ml 10ml inj HE ONE ×2 (08:40)
[2017-10-29] MEDS ORDERED: mannitol 20% IV solution 250ml 62.5 ML IV ONE (08:45)
[2017-10-29] MEDS: lactulose 20gm/30ml cup PO SCH ×2 (09:08→20:00)
[2017-10-29] MEDS: insulin Lispro (HumaLOG) vial - multi-dose SQ SCH ×2 (09:26→13:54)
[2017-10-29 15:41] LABS: HEMATOCRIT 24.2 % (42.0-52.0); HEMOGLOBIN 8.6 g/dl (14.0-17.9); MEAN CORPUSCULAR HEMOGLOBIN 33.3 PG (27.0-31.0); MEAN CORPUSCULAR HGB CONC 35.8 % (33.0-36.5); MEAN CORPUSCULAR VOLUME 92.9 FL (78-98); MEAN PLATELET VOLUME 6.9 FL (7.4-10.4); PLATELET COUNT 78 X10'3 (140-440); RED CELL DISTRIBUTION WIDTH 18.9 % (11.5-14.5); WHITE BLOOD COUNT 2.7 X10'3 (4.5-11.0)
[2017-10-29] MEDS ORDERED: normal saline 1000ml 1,000 ML IV SCH (16:04)
[2017-10-29 16:05] LABS: ANISOCYTOSIS 2+; PLATELET ESTIMATE DECREASED; POIKILOCYTOSIS FEW; POLYCHROMASIA FEW; TOTAL CELLS COUNTED 100
[2017-10-29] MEDS ORDERED: LIDOcaine Viscous 15ml cup PO ONE (16:05)
[2017-10-29] MEDS ORDERED: fentaNYL/PF 50MCG/1 ML 2ML syringe IV PRN (16:05)
[2017-10-29] MEDS ORDERED: simethicone 40mg/0.6ml oral drops 30ml MC ONE (16:05)
[2017-10-29] MEDS ORDERED: MIDAZolam 5mg/5ml vial IV PRN (16:05)
[2017-10-29 16:08] LABS: OCCULT BLOOD STOOL POSITIVE (Neg)
[2017-10-29] MEDS ORDERED: LIDOcaine Viscous 15ml cup ONE (16:16)
[2017-10-29] MEDS ORDERED: fentaNYL/PF 50MCG/1 ML 2ML syringe ONE (16:16)
[2017-10-29] MEDS ORDERED: MIDAZolam 1mg/ml 10ml vial ONE (16:16)
[2017-10-29] MEDS ORDERED: glucagon, human recombinant 1mg kit ONE (18:27)
[2017-10-29] MEDS: insulin glargine (Lantus) pen - multi-dose SQ SCH (20:21)
[2017-10-30 02:00] VITALS: BP 130/75
[2017-10-30] MEDS: pantoprazole 40MG/NS 100ML BAG 100 ML IV SCH ×5 (02:41→23:34)
[2017-10-30 06:00] VITALS: BP 130/67
[2017-10-30 07:04] LABS: ALANINE AMINOTRANSFERASE 146 U/L (12-78); ALBUMIN 2.2 G/DL (3.4-5.0); ALKALINE PHOSPHATASE 151 IU/L (46-116); ANION GAP 12 (8-16); ASPARTATE AMINO TRANSFERASE 247 U/L (10-37); BILIRUBIN,TOTAL 7.8 MG/DL (0.1-1.0); BLOOD UREA NITROGEN 48 MG/DL (7-18); BUN/CREATININE RATIO 11.4 (5.4-32.0); CALCIUM 7.7 MG/DL (8.5-10.1); CHLORIDE 103 MMOL/L (99-107); GLUCOSE 133 MG/DL (70-104); MAGNESIUM 1.9 MG/DL (1.5-2.4); POTASSIUM 3.2 MMOL/L (3.5-5.1); SODIUM 141 MMOL/L (135-145); TOTAL CARBON DIOXIDE 26.5 MMOL/L (24-32); eGFR 14 ML/MIN
[2017-10-30 07:06] LABS: ALBUMIN/GLOBULIN RATIO 0.7 (1.1-1.5); PHOSPHORUS 2.6 MG/DL (2.3-4.5); TOTAL PROTEIN 5.2 G/DL (6.4-8.2)
[2017-10-30] MEDS: lactulose 20gm/30ml cup PO SCH ×2 (07:25→19:08)
[2017-10-30 07:27] LABS: BASOPHILS % (AUTO) 0 % (0-1); EOSINOPHILS # (AUTO) 0.1 X10'3 (0-0.9); EOSINOPHILS % (AUTO) 1.9 % (0-6); HEMATOCRIT 26.4 % (42.0-52.0); HEMOGLOBIN 9.4 g/dl (14.0-17.9); LYMPHOCYTES # (AUTO) 0.4 X10'3 (1.1-4.8); LYMPHOCYTES % (AUTO) 8.2 % (21-51); MEAN CORPUSCULAR HEMOGLOBIN 33.2 PG (27.0-31.0); MEAN CORPUSCULAR HGB CONC 35.8 % (33.0-36.5); MEAN CORPUSCULAR VOLUME 92.7 FL (78-98); MEAN PLATELET VOLUME 7.2 FL (7.4-10.4); MONOCYTES # (AUTO) 0.6 X10'3 (0-0.9); MONOCYTES % (AUTO) 12.4 % (2-12); NEUTROPHILS # (AUTO) 3.5 X10'3 (1.8-7.7); NEUTROPHILS % (AUTO) 77.5 % (42-75); PLATELET COUNT 89 X10'3 (140-440); RED BLOOD COUNT 2.84 X10'6 (4.70-6.10); RED CELL DISTRIBUTION WIDTH 19.2 % (11.5-14.5); WHITE BLOOD COUNT 4.5 X10'3 (4.5-11.0)
[2017-10-30] MEDS ORDERED: normal saline 1000ml 250 ML IV PRN (09:17)
[2017-10-30] MEDS ORDERED: normal saline 1000ml 100 ML IV PRN (09:17)
[2017-10-30] MEDS ORDERED: potassium Cl 20 mEq SR tablet PO PRN (09:20)
[2017-10-30] MEDS ORDERED: epoetin 20,000 units/ml inj IV ONE (09:20)
[2017-10-30] MEDS ORDERED: heparin 1,000 units/ml 10ml inj HE ONE ×2 (09:25)
[2017-10-30 10:00] VITALS: BP 118/59
[2017-10-30] MEDS: potassium Cl 20 mEq SR tablet PO PRN ×2 (10:26→15:08)
[2017-10-30] MEDS: insulin Lispro (HumaLOG) vial - multi-dose SQ SCH ×3 (10:31→19:08)
[2017-10-30] MEDS: morphine 2 MG/ML inj. syringe IV PRN ×2 (16:36→20:32)
[2017-10-30 18:00] VITALS: BP 118/62
[2017-10-30] MEDS: insulin glargine (Lantus) pen - multi-dose SQ SCH (20:33)
[2017-10-30 22:00] VITALS: BP 106/61
[2017-10-30] MEDS: cyclobenzaprine 10mg tablet PO PRN (23:34)
[2017-10-31] MEDS: pantoprazole 40MG/NS 100ML BAG 100 ML IV SCH (04:45)
[2017-10-31] MEDS: morphine 2 MG/ML inj. syringe IV PRN ×2 (04:46→18:18)
[2017-10-31 06:00] VITALS: BP 89/37
[2017-10-31 06:33] LABS: ALANINE AMINOTRANSFERASE 140 U/L (12-78); ALBUMIN 1.8 G/DL (3.4-5.0); ALKALINE PHOSPHATASE 143 IU/L (46-116); ANION GAP 7 (8-16); ASPARTATE AMINO TRANSFERASE 221 U/L (10-37); BILIRUBIN,TOTAL 7.4 MG/DL (0.1-1.0); BLOOD UREA NITROGEN 29 MG/DL (7-18); BUN/CREATININE RATIO 8.5 (5.4-32.0); CALCIUM 7.5 MG/DL (8.5-10.1); CHLORIDE 106 MMOL/L (99-107); GLUCOSE 125 MG/DL (70-104); MAGNESIUM 1.6 MG/DL (1.5-2.4); POTASSIUM 3.9 MMOL/L (3.5-5.1); SODIUM 141 MMOL/L (135-145); TOTAL CARBON DIOXIDE 28.3 MMOL/L (24-32); eGFR 18 ML/MIN
[2017-10-31 06:36] LABS: ALBUMIN/GLOBULIN RATIO 0.6 (1.1-1.5); CREATINE KINASE 1884 U/L (39-308); PHOSPHORUS 2.6 MG/DL (2.3-4.5); TOTAL PROTEIN 4.8 G/DL (6.4-8.2)
[2017-10-31] MEDS: K and/or MAG REPLACEMENT MC SCH (08:00)
[2017-10-31] MEDS: lactulose 20gm/30ml cup PO SCH ×2 (09:12→19:15)
[2017-10-31] MEDS: insulin Lispro (HumaLOG) vial - multi-dose SQ SCH ×4 (09:15→21:47)
[2017-10-31 10:30] VITALS: BP 116/66
[2017-10-31] MEDS: LACTOSE-FREE FOOD (BOOST BREEZE) 237ML PO SCH ×2 (13:14→18:54)
[2017-10-31 18:00] VITALS: BP 126/73
[2017-10-31] MEDS: pantoprazole 40mg Tablet.DR PO SCH (19:16)
[2017-10-31] MEDS ORDERED: pantoprazole 40mg Tablet.DR PO SCH (20:00)
[2017-10-31] MEDS: insulin glargine (Lantus) pen - multi-dose SQ SCH (21:46)
[2017-10-31 22:00] VITALS: BP 100/57
[2017-11-01 06:25] VITALS: BP 112/63
[2017-11-01 06:36] LABS: ALANINE AMINOTRANSFERASE 129 U/L (12-78); ALBUMIN 1.7 G/DL (3.4-5.0); ALKALINE PHOSPHATASE 146 IU/L (46-116); ANION GAP 10 (8-16); ASPARTATE AMINO TRANSFERASE 159 U/L (10-37); BILIRUBIN,TOTAL 6.6 MG/DL (0.1-1.0); BLOOD UREA NITROGEN 37 MG/DL (7-18); BUN/CREATININE RATIO 8.4 (5.4-32.0); CALCIUM 7.7 MG/DL (8.5-10.1); CHLORIDE 104 MMOL/L (99-107); GLUCOSE 141 MG/DL (70-104); POTASSIUM 3.5 MMOL/L (3.5-5.1); SODIUM 141 MMOL/L (135-145); TOTAL CARBON DIOXIDE 27.2 MMOL/L (24-32); eGFR 13 ML/MIN
[2017-11-01 06:42] LABS: ALBUMIN/GLOBULIN RATIO 0.5 (1.1-1.5); TOTAL PROTEIN 4.8 G/DL (6.4-8.2)
[2017-11-01] MEDS: morphine 2 MG/ML inj. syringe IV PRN (07:06)
[2017-11-01] MEDS: lactulose 20gm/30ml cup PO SCH ×2 (07:49→19:17)
[2017-11-01] MEDS: pantoprazole 40mg Tablet.DR PO SCH ×2 (07:50→19:17)
[2017-11-01] MEDS: K and/or MAG REPLACEMENT MC SCH (08:00)
[2017-11-01] MEDS: LACTOSE-FREE FOOD (BOOST BREEZE) 237ML PO SCH ×3 (08:00→19:12)
[2017-11-01] MEDS: insulin Lispro (HumaLOG) vial - multi-dose SQ SCH ×3 (09:19→19:16)
[2017-11-01 11:18] VITALS: BP 103/52
[2017-11-01 18:30] VITALS: BP 122/66
[2017-11-01] MEDS: insulin glargine (Lantus) pen - multi-dose SQ SCH (21:37)
[2017-11-01] MEDS: cyclobenzaprine 10mg tablet PO PRN (21:39)
[2017-11-01 22:00] VITALS: BP 108/55
[2017-11-02 07:19] VITALS: BP 108/55
[2017-11-02 07:36] LABS: PHOSPHORUS 4.4 MG/DL (2.3-4.5)
[2017-11-02] MEDS: K and/or MAG REPLACEMENT MC SCH (08:00)
[2017-11-02 08:23] LABS: ALANINE AMINOTRANSFERASE 104 U/L (12-78); ALBUMIN 1.5 G/DL (3.4-5.0); ALKALINE PHOSPHATASE 151 IU/L (46-116); ASPARTATE AMINO TRANSFERASE 121 U/L (10-37); BILIRUBIN,TOTAL 4.6 MG/DL (0.1-1.0); BLOOD UREA NITROGEN 43 MG/DL (7-18); BUN/CREATININE RATIO 8.3 (5.4-32.0); CALCIUM 7.5 MG/DL (8.5-10.1); GLUCOSE 162 MG/DL (70-104); TOTAL CARBON DIOXIDE 25.1 MMOL/L (24-32); eGFR 11 ML/MIN
[2017-11-02 08:26] LABS: ALBUMIN/GLOBULIN RATIO 0.5 (1.1-1.5); ANION GAP 10 (8-16); CHLORIDE 102 MMOL/L (99-107); SODIUM 137 MMOL/L (135-145); TOTAL PROTEIN 4.4 G/DL (6.4-8.2)
[2017-11-02] MEDS: lactulose 20gm/30ml cup PO SCH ×2 (08:41→19:17)
[2017-11-02] MEDS: LACTOSE-FREE FOOD (BOOST BREEZE) 237ML PO SCH ×3 (08:41→18:00)
[2017-11-02] MEDS: pantoprazole 40mg Tablet.DR PO SCH ×2 (08:41→19:17)
[2017-11-02] MEDS: insulin Lispro (HumaLOG) vial - multi-dose SQ SCH ×2 (09:00→13:49)
[2017-11-02] MEDS ORDERED: epoetin 20,000 units/ml inj IV ONE (09:05)
[2017-11-02] MEDS ORDERED: heparin 1,000 units/ml 10ml inj IV ONE (09:05)
[2017-11-02] MEDS ORDERED: albumin (human) 25% 100ml IV 100 ML IV PRN (09:05)
[2017-11-02] MEDS ORDERED: heparin 1,000unit/ml 10ml vial 10 ML IV ONE (09:05)
[2017-11-02] MEDS ORDERED: heparin 1,000 units/ml 10ml inj HE ONE ×2 (09:10)
[2017-11-02 09:37] LABS: BASOPHILS % (AUTO) 0.1 % (0-1); EOSINOPHILS # (AUTO) 0.1 X10'3 (0-0.9); EOSINOPHILS % (AUTO) 1.9 % (0-6); HEMATOCRIT 26.1 % (42.0-52.0); HEMOGLOBIN 9.3 g/dl (14.0-17.9); LYMPHOCYTES # (AUTO) 0.3 X10'3 (1.1-4.8); LYMPHOCYTES % (AUTO) 6.9 % (21-51); MEAN CORPUSCULAR HEMOGLOBIN 33.4 PG (27.0-31.0); MEAN CORPUSCULAR HGB CONC 35.7 % (33.0-36.5); MEAN CORPUSCULAR VOLUME 93.7 FL (78-98); MEAN PLATELET VOLUME 7.4 FL (7.4-10.4); MONOCYTES # (AUTO) 0.5 X10'3 (0-0.9); NEUTROPHILS % (AUTO) 81.1 % (42-75); PLATELET COUNT 54 X10'3 (140-440); RED BLOOD COUNT 2.78 X10'6 (4.70-6.10); RED CELL DISTRIBUTION WIDTH 21.2 % (11.5-14.5); WHITE BLOOD COUNT 4.9 X10'3 (4.5-11.0)
[2017-11-02 10:00] VITALS: BP 119/61
[2017-11-02 11:13] LABS: HBSAG SCREEN Negative (Negative)
[2017-11-02] MEDS ORDERED: morphine 5 MG/ML injection IV PRN ×3 (16:20→16:30)
[2017-11-02 18:00] VITALS: BP 131/64
[2017-11-02] MEDS: insulin glargine (Lantus) pen - multi-dose SQ SCH (21:32)
[2017-11-02 22:00] VITALS: BP 136/68
[2017-11-03 06:00] VITALS: BP 123/57
[2017-11-03 07:23] LABS: POTASSIUM 3.3 MMOL/L (3.5-5.1)
[2017-11-03 07:24] LABS: PHOSPHORUS 3.7 MG/DL (2.3-4.5)
[2017-11-03] MEDS: LACTOSE-FREE FOOD (BOOST BREEZE) 237ML PO SCH ×3 (08:00→18:00)
[2017-11-03] MEDS: lactulose 20gm/30ml cup PO SCH ×3 (09:21→20:20)
[2017-11-03] MEDS: pantoprazole 40mg Tablet.DR PO SCH ×3 (09:21→20:20)
[2017-11-03] MEDS: insulin Lispro (HumaLOG) vial - multi-dose SQ SCH ×3 (09:32→19:07)
[2017-11-03] MEDS ORDERED: LORazepam 1 MG tablet PO PRN (13:35)
[2017-11-03 18:00] VITALS: BP 149/67
[2017-11-03] MEDS: insulin glargine (Lantus) pen - multi-dose SQ SCH (21:55)
[2017-11-03 22:00] VITALS: BP 145/76
[2017-11-04 06:00] VITALS: BP 147/54
[2017-11-04 06:30] LABS: POTASSIUM 3.4 MMOL/L (3.5-5.1)
[2017-11-04] MEDS: pantoprazole 40mg Tablet.DR PO SCH (08:00)
[2017-11-04] MEDS: lactulose 20gm/30ml cup PO SCH (08:00)
[2017-11-04] MEDS: LACTOSE-FREE FOOD (BOOST BREEZE) 237ML PO SCH ×2 (08:00→13:00)
[2017-11-04] MEDS: insulin Lispro (HumaLOG) vial - multi-dose SQ SCH (09:31)
[2017-11-04 10:00] VITALS: BP 154/66
[2017-11-04 14:19] LABS: ALBUMIN 1.7 G/DL (3.4-5.0); ANION GAP 12 (8-16); BLOOD UREA NITROGEN 43 MG/DL (7-18); CALCIUM 7.9 MG/DL (8.5-10.1); CHLORIDE 106 MMOL/L (99-107); GLUCOSE 183 MG/DL (70-104); PHOSPHORUS 4.6 MG/DL (2.3-4.5); SODIUM 141 MMOL/L (135-145); TOTAL CARBON DIOXIDE 23.4 MMOL/L (24-32); eGFR 14 ML/MIN
[2017-11-04 18:00] VITALS: BP 136/68
[2017-11-04 22:00] VITALS: BP 124/68
[2017-11-05 10:00] VITALS: BP 141/56
[2017-11-05] MEDS ORDERED: heparin 1,000 units/ml 10ml inj HE ONE ×2 (16:05)
[2017-11-05 22:00] VITALS: BP 125/65
[2017-11-06 10:00] VITALS: BP 142/66
[2017-11-06] MEDS ORDERED: morphine 2 MG/ML inj. syringe IV PRN (15:05)
[2017-11-06] MEDS: morphine 2 MG/ML inj. syringe IV PRN (15:13)
[2017-11-06 22:00] VITALS: BP 117/49
[2017-11-07] MEDS: morphine 2 MG/ML inj. syringe IV PRN ×2 (02:30→09:02)
[2017-11-07 10:00] VITALS: BP 110/63
[2017-11-07 22:00] VITALS: BP 110/63
[2017-11-08 10:00] VITALS: BP 123/58
[2017-11-08 10:13] LABS: ALBUMIN 1.4 G/DL (3.4-5.0); ANION GAP 10 (8-16); BLOOD UREA NITROGEN 64 MG/DL (7-18); BUN/CREATININE RATIO 14.9 (5.4-32.0); CALCIUM 7.5 MG/DL (8.5-10.1); CHLORIDE 102 MMOL/L (99-107); GLUCOSE 379 MG/DL (70-104); SODIUM 135 MMOL/L (135-145); TOTAL CARBON DIOXIDE 22.7 MMOL/L (24-32); eGFR 14 ML/MIN
[2017-11-08 10:15] LABS: BASOPHILS % (AUTO) 0.1 % (0-1); EOSINOPHILS # (AUTO) 0.1 X10'3 (0-0.9); EOSINOPHILS % (AUTO) 2.7 % (0-6); HEMATOCRIT 22.9 % (42.0-52.0); HEMOGLOBIN 7.9 g/dl (14.0-17.9); LYMPHOCYTES # (AUTO) 0.2 X10'3 (1.1-4.8); LYMPHOCYTES % (AUTO) 4.5 % (21-51); MEAN CORPUSCULAR HEMOGLOBIN 33.4 PG (27.0-31.0); MEAN CORPUSCULAR HGB CONC 34.5 % (33.0-36.5); MEAN CORPUSCULAR VOLUME 96.8 FL (78-98); MEAN PLATELET VOLUME 7.4 FL (7.4-10.4); MONOCYTES # (AUTO) 0.3 X10'3 (0-0.9); MONOCYTES % (AUTO) 8.9 % (2-12); NEUTROPHILS # (AUTO) 2.9 X10'3 (1.8-7.7); NEUTROPHILS % (AUTO) 83.8 % (42-75); RED BLOOD COUNT 2.37 X10'6 (4.70-6.10); RED CELL DISTRIBUTION WIDTH 19.9 % (11.5-14.5); WHITE BLOOD COUNT 3.4 X10'3 (4.5-11.0)
[2017-11-08 10:32] LABS: PLATELET COUNT 48 X10'3 (140-440)
[2017-11-08 22:00] VITALS: BP 132/69
[2017-11-09 09:23] LABS: BASOPHILS % (AUTO) 0.1 % (0-1); EOSINOPHILS # (AUTO) 0.2 X10'3 (0-0.9); EOSINOPHILS % (AUTO) 4.7 % (0-6); HEMATOCRIT 23.8 % (42.0-52.0); HEMOGLOBIN 8.3 g/dl (14.0-17.9); LYMPHOCYTES # (AUTO) 0.3 X10'3 (1.1-4.8); LYMPHOCYTES % (AUTO) 8.5 % (21-51); MEAN CORPUSCULAR HEMOGLOBIN 33.9 PG (27.0-31.0); MEAN PLATELET VOLUME 7.2 FL (7.4-10.4); MONOCYTES # (AUTO) 0.4 X10'3 (0-0.9); MONOCYTES % (AUTO) 9.1 % (2-12); NEUTROPHILS % (AUTO) 77.6 % (42-75); PLATELET COUNT 59 X10'3 (140-440); RED BLOOD COUNT 2.45 X10'6 (4.70-6.10); RED CELL DISTRIBUTION WIDTH 20.2 % (11.5-14.5); WHITE BLOOD COUNT 3.9 X10'3 (4.5-11.0)
[2017-11-09 09:32] LABS: ALBUMIN 1.5 G/DL (3.4-5.0); ANION GAP 10 (8-16); BLOOD UREA NITROGEN 64 MG/DL (7-18); BUN/CREATININE RATIO 14.9 (5.4-32.0); CALCIUM 7.7 MG/DL (8.5-10.1); CHLORIDE 103 MMOL/L (99-107); GLUCOSE 306 MG/DL (70-104); POTASSIUM 3.3 MMOL/L (3.5-5.1); SODIUM 136 MMOL/L (135-145); eGFR 14 ML/MIN
[2017-11-09 10:00] VITALS: BP 140/77
[2017-11-09 17:00] VITALS: BP 126/61
[2017-11-09] MEDS: LORazepam 1 MG tablet PO PRN (20:23)
[2017-11-09] MEDS ORDERED: lactulose 20gm/30ml cup PO SCH (21:00)
[2017-11-09 22:00] VITALS: BP 125/64
[2017-11-10 10:00] VITALS: BP 106/61
[2017-11-10] MEDS: LORazepam 1 MG tablet PO PRN (11:14)
[2017-11-10 22:00] VITALS: BP 126/66
[2017-11-10] MEDS: morphine 2 MG/ML inj. syringe IV PRN (23:38)
[2017-11-11 10:00] VITALS: BP 103/56
[2017-11-11 18:37] VITALS: BP 124/48
[2017-11-11 22:00] VITALS: BP 140/72
[2017-11-12 10:00] VITALS: BP 106/57
[2017-11-12] MEDS ORDERED: morphine 5 MG/ML injection IV PRN ×2 (13:52→13:53)
[2017-11-12] MEDS: LORazepam 1 MG tablet PO PRN (14:06)
[2017-11-12] MEDS ORDERED: HYDROmorphone inj. 0.5 MG/0.5 ML DISP.SYRIN IV PRN (20:40)
[2017-11-12] MEDS: HYDROmorphone inj. 0.5 MG/0.5 ML DISP.SYRIN IV PRN (21:23)
[2017-11-13] MEDS: LORazepam 1 MG tablet PO PRN ×3 (00:13→14:12)
[2017-11-13] MEDS: HYDROmorphone inj. 0.5 MG/0.5 ML DISP.SYRIN IV PRN ×3 (08:17→18:50)
[2017-11-13 10:00] VITALS: BP 102/48
[2017-11-14] MEDS: HYDROmorphone inj. 0.5 MG/0.5 ML DISP.SYRIN IV PRN ×2 (02:53→07:54)
== END 2017-11-14 09:00 | disposition expired | DRG 871 ==
LOC: ER 17:44 → ED HOLD 23:51 → PCU 3S 10-24 01:00 → ORTHO 4S 10-28 14:28
PROVIDERS: ADMIT Internal Medicine; ATTEND Family Medicine
PROC: 30233N1 Transfusion of Nonautologous Red Blood Cells into Peripheral Vein, Percutaneous Approach (ICD-10-PCS; principal; 2017-10-27)
PROC: 0DJ08ZZ Inspection of Upper Intestinal Tract, Via Natural or Artificial Opening Endoscopic (ICD-10-PCS; 2017-10-27)
PROC: 5A1D70Z Performance of Urinary Filtration, Intermittent, Less than 6 Hours Per Day (ICD-10-PCS; 2017-10-28)
PROC: 0JH63XZ Insertion of Tunneled Vascular Access Device into Chest Subcutaneous Tissue and Fascia, Percutaneous Approach (ICD-10-PCS; 2017-10-28)
PROC: 02H633Z Insertion of Infusion Device into Right Atrium, Percutaneous Approach (ICD-10-PCS; 2017-10-28)
PROC: 30233R1 Transfusion of Nonautologous Platelets into Peripheral Vein, Percutaneous Approach (ICD-10-PCS; 2017-10-29)
PROC: 5A1D70Z Performance of Urinary Filtration, Intermittent, Less than 6 Hours Per Day (ICD-10-PCS; 2017-10-29)
PROC: 0W3P8ZZ Control Bleeding in Gastrointestinal Tract, Via Natural or Artificial Opening Endoscopic (ICD-10-PCS; 2017-10-29)
PROC: 5A1D70Z Performance of Urinary Filtration, Intermittent, Less than 6 Hours Per Day (ICD-10-PCS; 2017-10-30)
PROC: 5A1D70Z Performance of Urinary Filtration, Intermittent, Less than 6 Hours Per Day (ICD-10-PCS; 2017-11-02)
DX: A41.9 Sepsis, unspecified organism (principal); K72.00 Acute and subacute hepatic failure without coma; N17.0 Acute kidney failure with tubular necrosis; I21.4 Non-ST elevation (NSTEMI) myocardial infarction; D68.9 Coagulation defect, unspecified; D69.6 Thrombocytopenia, unspecified; E11.22 Type 2 diabetes mellitus with diabetic chronic kidney disease; I48.91 Unspecified atrial fibrillation; E86.1 Hypovolemia; E87.2 Acidosis; K76.6 Portal hypertension; C22.9 Malignant neoplasm of liver, not specified as primary or secondary; K92.2 Gastrointestinal hemorrhage, unspecified; M62.82 Rhabdomyolysis; R18.8 Other ascites; L89.619 Pressure ulcer of right heel, unspecified stage; K21.0 Gastro-esophageal reflux disease with esophagitis; L89.899 Pressure ulcer of other site, unspecified stage; D64.9 Anemia, unspecified; K31.819 Angiodysplasia of stomach and duodenum without bleeding; E87.6 Hypokalemia; E11.65 Type 2 diabetes mellitus with hyperglycemia; F03.90 Unspecified dementia, unspecified severity, without behavioral disturbance, psychotic disturbance, mood disturbance, and anxiety; F41.9 Anxiety disorder, unspecified; I12.9 Hypertensive chronic kidney disease with stage 1 through stage 4 chronic kidney disease, or unspecified chronic kidney disease; K74.60 Unspecified cirrhosis of liver; F32.9 Major depressive disorder, single episode, unspecified; R70.0 Elevated erythrocyte sedimentation rate; K75.81 Nonalcoholic steatohepatitis (NASH); N40.0 Benign prostatic hyperplasia without lower urinary tract symptoms; N18.9 Chronic kidney disease, unspecified; S90.821A Blister (nonthermal), right foot, initial encounter; X58.XXXA Exposure to other specified factors, initial encounter; Z51.5 Encounter for palliative care; Z66 Do not resuscitate; Z79.899 Other long term (current) drug therapy; Z79.4 Long term (current) use of insulin; Y92.89 Other specified places as the place of occurrence of the external cause
CPT/HCPCS: 36415; 36558; 36600; 70450; 70551; 71045; 71250; 73502; 73560; 73600; 73620; 74018; 74176; 76882; 76937; 77001; 80048; 80053; 80069; 80202; 80329; 81001; 82140; 82272; 82550; 82803; 82948; 83036; 83605; 83735; 83874; 83880; 84100; 84132; 84145; 84439; 84443; 84484; 85018; 85025; 85610; 85651; 85730; 86885; 86900; 86901; 86920; 87040; 87070; 87340; 87502; 87503; 92616; 93005; 93306; 93880; 93971; 95816; 96365; 96366; 96367; 96375; 97110; 97116; 97162; 97530; 99152; 99153; 99291; A4315; A4620; A4649; A6209; A6212; A6213; A6251; A6257; C1750; C1758; C1769; C1894; C9113; G0257; G0500; J0885; J1170; J1610; J1644; J1815; J1940; J2001; J2150; J2250; J2270; J2405; J2543; J3010; J3370; J3480; J3490; J7030; J7070; P9016; P9035; P9047; Q0163